=== PATIENT | male | born 1995 | race Caucasian/White ===

== ENCOUNTER 2017-06-07 03:09 | Emergency (ER) | payer OTHER ==
[~2017-06-07] VITALS: Ht 172.7 cm; Wt 68.0 kg
[~2017-06-07 03:09] MED LIST: CLIN300C3 PO; HYDR1TAB8 OP; LRT10T PO; METH4TAB PO; SULF1TAB38 PO; z pack
--- NOTE | 2017-06-07 03:33 | ED General ---
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 The needlestick occurred in his third digit distal phalangeal he buried all the way to the hub approximately 5/8 of an inch through his leather glove. This occurred approximately 0230 today, 06/07/17. The patient is unsure if he has ever received hepatitis A or B vaccinations. He states he had a tetanus shot approximately 1.5 years ago after stepping on a andrew nail and will get a hold of his PCP to confirm the vaccination status. He is unsure if he's ever had hep B virus titers or Any previous testing for hepatitis B or C. He denies any medical history or use of any routine medications. Allergies and Home Medications Allergies Coded Allergies: No Known Drug Allergies (Unverified , 07/30/12) Home Medications Hydrocodone Bit/Ibuprofen 1 Each Tablet, 1-2 EACH OP Q4-6HR PRN for PAIN, #20 FOR PAIN Prescribed by: ARTUR VILLAVICENCIO on 08/10/14 5754 Constitutional: No chills, No diaphoresis, No fever, No malaise Respiratory: No cough, No short of breath Cardiovascular: No chest pain, No syncope, No vascular heart diseas Gastrointestinal: No abdominal pain, No nausea Genitourinary: No dysuria Psychiatric/Neurological: Denies Anxiety, Denies Depressed Past Vqjhogw-Wapqnq-Bdjlvp Hx Patient Social History Recent Foreign Travel: No Contact w/Someone Who Travel: No Immunizations Up To Date Tetanus Booster (TDap): Less than 5yrs Surgeries HX Surgeries: Yes Surgeries: Tonsillectomy Respiratory Hx Respiratory Disorders: No Cardiovascular Hx Cardiac Disorders: No Neurological Hx Neurological Disorders: No Reproductive System Hx Reproductive Disorders: No Genitourinary Hx Genitourinary Disorders: No Gastrointestinal Hx Gastrointestinal Disorders: Yes Gastrointestinal Disorders: Gastroesophageal Reflux Musculoskeletal Hx Musculoskeletal Disorders: No Endocrine Hx Endocrine Disorders: No HEENT HX ENT Disorders: No Cancer Hx Cancer: No Psychosocial Hx Psychiatric Problems: No Integumentary HX Skin/Integumentary Disorder: No Blood Transfusions Hx Blood Disorders: No Adverse Reaction to a Blood Tr: No Physical Exam Vital Signs Vital Sign - Last 12Hours 06/07/17 03:21 Temp 98.3 Pulse 79 Resp 20 B/P (MAP) 133/87 Pulse Ox 100 O2 Delivery Room Air Capillary Refill : General Appearance: No Apparent Distress, WD/WN Eyes: Bilateral Eye EOMI, Bilateral Eye Normal Inspection HEENT: PERRL/EOMI, Normal ENT Inspection Neck: Full Range of Motion, Normal Inspection Respiratory: Lungs Clear, Normal Breath Sounds Extremity: Normal Capillary Refill, Normal Inspection, Other (left hand distal phalanx of the third digit with small punctate wound and scant amount of dried blood. Tender to palpation.) Neurologic/Psychiatric: Alert, Oriented x3 Skin: Normal Color, Warm/Dry Progress/Results/Core Measures Results/Orders Lab Results Laboratory Tests Test 06/07/17 03:30 Range/Units White Blood Count 12.4 H 4.3-11.0 10^3/uL Red Blood Count 5.40 4.35-5.85 10^6/uL Hemoglobin 16.1 13.3-17.7 G/DL Hematocrit 47 40-54 % Mean Corpuscular Volume 86 80-99 FL Mean Corpuscular Hemoglobin 30 25-34 PG Mean Corpuscular Hemoglobin Concent 35 32-36 G/DL Red Cell Distribution Width 11.9 10.0-14.5 % Platelet Count 351 130-400 10^3/uL Mean Platelet Volume 9.1 7.4-10.4 FL Neutrophils (%) (Auto) 69 42-75 % Lymphocytes (%) (Auto) 21 12-44 % Monocytes (%) (Auto) 8 0-12 % Eosinophils (%) (Auto) 1 0-10 % Basophils (%) (Auto) 1 0-10 % Neutrophils # (Auto) 8.6 H 1.8-7.8 X 10^3 Lymphocytes # (Auto) 2.6 1.0-4.0 X 10^3 Monocytes # (Auto) 1.0 0.0-1.0 X 10^3 Eosinophils # (Auto) 0.1 0.0-0.3 10^3/uL Basophils # (Auto) 0.1 0.0-0.1 10^3/uL Sodium Level 139 135-145 MMOL/L Potassium Level 3.6 3.6-5.0 MMOL/L Chloride Level 104 98-107 MMOL/L Carbon Dioxide Level 18 L 21-32 MMOL/L Anion Gap 17 H 5-14 MMOL/L Blood Urea Nitrogen 12 7-18 MG/DL Creatinine 0.80 0.60-1.30 MG/DL Estimat Glomerular Filtration Rate > 60 BUN/Creatinine Ratio 15 Glucose Level 97 70-105 MG/DL Calcium Level 9.8 8.5-10.1 MG/DL Total Bilirubin 0.6 0.1-1.0 MG/DL Aspartate Amino Transf (AST/SGOT) 23 5-34 U/L Alanine Aminotransferase (ALT/SGPT) 29 0-55 U/L Alkaline Phosphatase 103 40-136 U/L Total Protein 7.2 6.4-8.2 GM/DL Albumin 4.7 H 3.2-4.5 GM/DL My Orders Orders - RONDA CASON Cbc With Automated Diff (06/07/17 03:33) Comprehensive Metabolic Panel (06/07/17 03:33) Hepatitis Panel Acute (06/07/17 03:33) Hiv 1&2 Antibody (06/07/17 03:33) Hepatitis B Immune Glob Inj (Hepagam B I (06/07/17 04:00) Vital Signs/I&O Vital Sign - Last 12Hours 06/07/17 03:21 Temp 98.3 Pulse 79 Resp 20 B/P (MAP) 133/87 Pulse Ox 100 O2 Delivery Room Air Progress Note #1: Time: 03:38 Progress Note Patient will need to follow-up with occupational medicine however we will definitely need to know the status of the individual who own the needle then used the needle in terms of HIV, hepatitis etc. He's not wanting to get the tetanus shot since she's had a year and a half ago so I have asked him to get his records from his PCP and present them to the occupational medicine clinic today. We will going give him 1 dose of 0.06 mL's per kilogram hepatitis B immunoglobulin IM today. He'll need to figure out whether or not he would be a candidate for HIV postexposure prophylaxis at occupational medicine. We'll discuss this in detail how important it is for him to contact them as soon as OM opens up today. We'll obtain a detailed history and then get his hepatitis and HIV baseline labs. Progress Note #2: Time: 04:15 Progress Note After being cleaned the wound looks very good is nontender and is no evidence of any foreign body, erythema, drainage. He'll not need empiric antibiotics and we were unable to give him the hep B immunoglobulin as we do not have it here in the ER. We'll have him follow-up with occupational medicine this morning to try and get that injection or he can follow-up with the health department or he can return to the ER during business hours when the pharmacist is in the hospital. Departure Impression Impression: Primary Impression: Needle stick injury of finger of left hand Qualified Codes: S61.239A - Puncture wound without foreign body of unspecified finger without damage to nail, initial encounter; W27.3XXA - Contact with needle (sewing), initial encounter Disposition: 01 HOME, SELF-CARE Condition: Stable Departure-Patient Inst. Referrals: NO,LOCAL PHYSICIAN (PCP/Family) Primary Care Physician Patient Instructions: Proper Disposal of [place] Add. Discharge Instructions: We'll obtain a baseline set of labs to check your vaccination status gets the most common viral infections from accidental needle sticks. You will need to follow up today with occupational medicine across the [place] from the ER. You can call and get an appointment. You should ask occupational medicine about getting hepatitis B immunoglobulin today to try and prevent hepatitis B infection. If you cannot get a hold of occupational medicine you could also try the [facility] department. You may also return to the ER during business hours when the pharmacist is present and we can help you. You should try to obtain a copy of your last tetanus vaccination from your primary care physician and take that with you to occupational medicine today. If you're having fevers chills nausea or intractable pain you should return to the ER. Keep the wound clean with soap and water and a light dressing to keep dirt out of it. Please contact the [facility] occupational medicine at [phone]. All discharge instructions reviewed with patient and/or family. Voiced understanding. Copy Copies To 1: SHARAD TROTTER TITUS J Jun 07, 2017 03:33
[2017-06-07 03:41] LABS: BASOPHILS # (AUTO) 0.1 10^3/uL (0.0-0.1); BASOPHILS % (AUTO) 1 % (0-10); EOSINOPHILS # (AUTO) 0.1 10^3/uL (0.0-0.3); EOSINOPHILS % (AUTO) 1 % (0-10); LYMPHOCYTES # (AUTO) 2.6 X 10^3 (1.0-4.0); LYMPHOCYTES % (AUTO) 21 % (12-44); MEAN CORPUSCULAR HEMOGLOBIN 30 PG (25-34); MEAN CORPUSCULAR HGB CONC 35 G/DL (32-36); MEAN CORPUSCULAR VOLUME 86 FL (80-99); MEAN PLATELET VOLUME 9.1 FL (7.4-10.4); MONOCYTES % (AUTO) 8 % (0-12); NEUTROPHILS # (AUTO) 8.6 X 10^3 (1.8-7.8); NEUTROPHILS % (AUTO) 69 % (42-75); PLATELET COUNT 351 10^3/uL (130-400); RED CELL DISTRIBUTION WIDTH 11.9 % (10.0-14.5); WHITE BLOOD COUNT 12.4 10^3/uL (4.3-11.0)
[2017-06-07] MEDS ORDERED: HEPATITIS B IMMUN GLOB 312 UNIT/ML 1 ML (HEPAGAM B) IM ONE (04:00)
[2017-06-07 04:04] LABS: ALANINE AMINOTRANSFERASE 29 U/L (0-55); ALBUMIN 4.7 GM/DL (3.2-4.5); ANION GAP 17 MMOL/L (5-14); ASPARTATE AMINO TRANSFERASE 23 U/L (5-34); BILIRUBIN,TOTAL 0.6 MG/DL (0.1-1.0); BLOOD UREA NITROGEN 12 MG/DL (7-18); BUN/CREATININE RATIO 15; CALCIUM 9.8 MG/DL (8.5-10.1); CARBON DIOXIDE 18 MMOL/L (21-32); CHLORIDE 104 MMOL/L (98-107); GFR ESTIMATED > 60; GLUCOSE 97 MG/DL (70-105); POTASSIUM 3.6 MMOL/L (3.6-5.0); SODIUM 139 MMOL/L (135-145); TOTAL PROTEIN 7.2 GM/DL (6.4-8.2)
[2017-06-07 04:17] VITALS: BP 133/87
[2017-06-08 13:02] LABS: HIV AG AB SCREEN Non-Reactive (Non-Reactive)
== END 2017-06-07 04:17 | disposition home or self-care (01) ==
LOC: EDUNIT# 03:09 → ER 03:14
DX: S61.233A Puncture wound without foreign body of left middle finger without damage to nail, initial encounter (principal); Z23 Encounter for immunization; W46.0XXA Contact with hypodermic needle, initial encounter; Y92.810 Car as the place of occurrence of the external cause; Y99.0 Civilian activity done for income or pay
CPT/HCPCS: 36415; 80053; 80074; 85025; 86703; 99283

== ENCOUNTER 2023-08-06 15:05 | Emergency (ER) | payer SELFPAY ==
[2023-08-06] MEDS ORDERED: CEPH500T PO (16:09)
--- NOTE | 2023-08-06 16:09 | ED Upper Extremity ---
General Chief Complaint: Upper Extremity Stated Complaint: LT MIDDLE FINGER OPEN WOUND Nursing Triage Note: PT AMB TO [facility] PT STATES SMASHED MIDDLE FINGER L HAND IN TRAILER. PT HAS OPEN FX AND FROM [facility]. History of Present Illness Date Seen by Provider: Aug 06, 2023 Time Seen by Provider: 15:58 Initial Comments Patient is a 28-year-old right-handed male who presents to the emergency room with a chief complaint of left middle finger crush injury on a trailer this afternoon. He was initially seen at [facility] and sent to the emergency department. Patient had a tetanus shot prior to arrival. No allergies to medications. No other complaints of injury. Films at outlying facility, [facility] independently reviewed and int erpreted by me. Tuft fracture left distal third phalanx. Onset: this afternoon Severity: moderate Pain/Injury Location: left 3rd finger Method of Injury: other (crush injury) Modifying Factors: Worse With Movement Allergies and Home Medications Allergies Coded Allergies: No Known Drug Allergies (Unverified , 07/30/12) Patient Home Medication List Home Medication List Reviewed: Yes Cephalexin (Cephalexin) 500 Mg Tablet, 500 MG PO TID Prescribed by: COLBY HERNANDEZ on 08/06/23 1609 Hydrocodone Bit/Ibuprofen (Vicoprofen 200-7.5 Mg Tab) 1 Each Tablet, 1-2 EACH OP Q4-6HR PRN for PAIN Prescribed by: ARTUR VILLAVICENCIO on 08/10/14 2251 Review of Systems Constitutional: see HPI Skin: other (crush to tip of left finger) Past Uuqmehm-Vlxycl-Xkgsym Hx Patient Social History Tobacco Use?: Yes Smoking Status: Never a Smoker Substance use?: No Alcohol Use?: No Pt feels they are or have been: No Immunizations Up To Date Tetanus Booster (TDap): Less than 5yrs Seasonal Allergies Seasonal Allergies: No Past Medical History Surgeries: Yes Tonsillectomy Respiratory: No Cardiac: No Neurological: No Reproductive Disorders: No Genitourinary: No Gastrointestinal: Yes Gastroesophageal Reflux Musculoskeletal: No Endocrine: No HEENT: No Cancer: No Psychosocial: No Integumentary: No Blood Disorders: No Adverse Reaction/Blood Tranf: No Physical Exam Vital Signs Vital Signs - First Documented 08/06/23 15:17 Temp 36.1 Pulse 90 Resp 16 B/P (MAP) 148/104 (119) Pulse Ox 95 Capillary Refill : Less Than 3 Seconds Height, Weight, BMI Height: 5'8" Weight: 150lbs. oz. 68.314432ha; 21.28 BMI Method:Stated General Appearance: WD/WN, no apparent distress HEENT: PERRL/EOMI Respiratory: no respiratory distress, no accessory muscle use Hand: swelling (left distal 3rd finger tip swelling, nail avulsed with subungual hematoma. no active bleeding) Neurologic/Tendon: normal sensation, normal motor functions Neurologic/Psychiatric: alert, normal mood/affect, oriented x 3 Skin: normal color, warm/dry Progress/Results/Core Measures Results/Orders My Orders Orders - COLBY HERNANDEZ MD Lidocaine 2% Pf 10 Ml (Xylocaine 2% Pf) (08/06/23 16:15) Lidocaine 2% Pf 5 Ml (Xylocaine 2% Pf) (08/06/23 16:10) Medications Given in ED Current Medications Medications Dose Ordered Sig/Michi Route Start Time Stop Time Status Last Admin Dose Admin Lidocaine HCl 10 ml ONCE ONCE INJ 08/06/23 16:15 08/06/23 16:16 DC 08/06/23 16:13 10 ML Vital Signs/I&O 08/06/23 15:17 Temp 36.1 Pulse 90 Resp 16 B/P (MAP) 148/104 (119) Pulse Ox 95 Blood Pressure Mean: 119 Progress Progress Note : Time: 17:02 Progress Note Patient seen and examined by me Departure Impression Primary Impression: Crushing injury of left middle finger, initial encounter Additional Impression: Avulsion of nail of left middle finger Condition: Stable Departure-Patient Inst. Decision time for Depature: 16:07 Referrals: NO,LOCAL PHYSICIAN (PCP) Primary Care Physician KAREN MALONEY MD Patient Instructions: Finger Fracture (DC) Add. Discharge Instructions: Keep the splint on for protection of the tip of the finger for 2-4 weeks. Do finger soaks (10-15min) in warm soapy water twice a day for 3 days. Keep the tip of the finger clean dry and covered while at work. Neosporin twice a day for 3 days. Take the antibiotics as directed for 10 days. If the finger starts to get more red, swollen, drain pus or any other concerning symptoms develop please return to the ER for re-evaluation. . Scripts Cephalexin (Cephalexin) 500 Mg Tablet 500 MG PO TID, #30 TAB Prov: COLBY HERNANDEZ MD 08/06/23 Copy Copies To 1: KAREN MALONEY MD, KATHRYN M MD Aug 06, 2023 16:09
[2023-08-06] MEDS ORDERED: LIDOCAINE PF 2% 5 ML VIAL ONE (16:10)
[2023-08-06] MEDS ORDERED: LIDOCAINE 2% INJ ONE (16:15)
[2023-08-06 17:11] VITALS: BP 148/104
== END 2023-08-06 17:12 | disposition home or self-care (01) ==
LOC: EDUNIT# 15:05 → ER 15:09
DX: S67.193A Crushing injury of left middle finger, initial encounter (principal); W23.1XXA Caught, crushed, jammed, or pinched between stationary objects, initial encounter